=== PATIENT | female | born 1960 | race Caucasian/White ===

== ENCOUNTER 2016-10-17 01:06 | Emergency (ER) | payer OTHER ==
[~2016-10-17 01:06] MED LIST: HYDROCODONE/ACE1 TA1 PO; KETOCONAZOLE2% TOP; NASONEX0.05 MG/Ac NAS; PERCOCET 325 MG1 TA2 PO; PERCOCET 5-3251 EACH PO; ZITHROMAX Z PA250 MG PO
[2016-10-17] MEDS ORDERED: VESICARE10 MG PO (01:20)
[2016-10-17] MEDS ORDERED: TAMOXIFEN CITRA20 M1 PO (01:20)
--- NOTE | 2016-10-17 01:24 | ED GENERAL ADULT ---
History of Present Illness General Chief Complaint: General Adult Stated Complaint: MULTIPLE COMPLAINTS Source: patient Exam Limitations: no limitations Vital Signs & Intake/Output Vital Signs & Intake/Output Vital Signs Date Time Temp Pulse Resp B/P B/P Pulse O2 O2 Flow FiO2 Mean Ox Delivery Rate 10/17 0244 97.4 73 18 143/85 98 Room Air 10/17 0112 97.0 70 18 145/91 97 Room Air Allergies Coded Allergies: NO KNOWN ALLERGIES (08/21/15) Reconcile Medications Augmentin (Augmentin 500-125 Tablet) 500 MG-125 MG TABLET 1 TAB PO BID sinusitis Azithromycin (Zithromax Z Pack) 250 MG TAB 1 TAB PO DAILY Sinus congestion Take 2 tabs on the first day. Takw 1 tab daily for the following 4 days Hydrogen Peroxide (Peroxide Sore Mouth Cleanser) 1.5 % SOLUTION 1 TAB PO Q8 PRN PAIN Ketoconazole 2% CRE 1 AUDREY TOP BID DERMATITIS Mometasone Furoate (Nasonex) 0.05 MG/Actuation SPR 2 SPRAY ELIZABETH DAILY SINUS CONGESTION OXYCODONE HCL/ACETAMINOPHEN (Percocet 5-325 MG Tablet) 325 MG/5 MG TAB 1 TAB PO Q8 PRN PAIN Oxycodone HCl/Acetaminophen (Percocet 5-325 MG Tablet) 5 MG-325 MG TABLET 1 TAB PO BID PRN PAIN Solifenacin Succinate (Vesicare) 10 MG TABLET 1 TAB PO DAILY BLADDER ( Reported) Tamoxifen Citrate 20 MG TABLET 1 TAB PO DAILY BREAST CANCER (Reported) Triage Note: PER PT TOOTH ACHE SINCE 2300 L SIDE "15TH TOOTH, PER PT RADIATES TO EAR, DID NOT HAVE ANYTHING TO TAKE AT HOME NO MOTRIN OR TYLENOL, DID TRY WARM TEA AND ICE WITHOUT EFFECT. ARRIVES VIA EMS, PT AWARE OF WAIT Triage Nurses Notes Reviewed? yes Onset: Abrupt Duration: day(s): Timing: recent history HPI: 10/17/16 2:22 am 55-year-old female presents with tooth pain, bilateral maxillary sinus pain, and ear pain. She says she's had the symptoms for the past 48 hours. She denies fever. She says that she has a past medical history of sinusitis with similar symptoms in the past. She also has a history of breast cancer currently in remission on tamoxifen. The onset of the symptoms have been abrupt. The duration has been for 2 days. The severity is significant as they required her to come to the ED for care. Past History Travel History Traveled to [place] past 21 day No Medical History Any Pertinent Medical History? 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 No Review of Systems Review of Systems Constitutional: Denies: fever. EENTM: Denies: visual changes. Respiratory: Denies: short of breath. Cardiovascular: Denies: chest pain. GI: Denies: abdominal pain. Genitourinary: Reports: no symptoms. Musculoskeletal: Reports: no symptoms. Skin: Denies: rash. Neurological/Psychological: Reports: anxiety. Hematologic/Endocrine: Denies: bruising. Immunologic/Allergic: Reports: no symptoms. Physical Exam Physical Exam General Appearance: well developed/nourished, alert, awake, anxious, mild distress Head: atraumatic Eyes: Bilateral: normal appearance, PERRL, EOMI. Ears, Nose, Throat: maxillary sinus tenderness Neck: normal inspection, supple, full range of motion Respiratory: normal breath sounds, chest non-tender, no respiratory distress Cardiovascular: regular rate/rhythm Peripheral Pulses: 4+ radial (R), 4+ radial (L) Gastrointestinal: non-tender Back: normal range of motion Extremities: normal inspection Neurologic/Psych: no motor/sensory deficits, awake, alert, oriented x 3 Skin: intact, normal color, warm/dry Comments: Physical examination does reveal dental caries at the #15 tooth. Left upper molar. No abscess. She has significant bilateral maxillary sinus tenderness. Pharynx is noninjected. There is no uvular deviation. No cervical adenopathy. No nuchal rigidity. Tympanic membranes are clear. No mastoid tenderness. Lungs are clear. Core Measures ACS in differential dx? No CVA/TIA Diagnosis: No Severe Sepsis Present: No Septic Shock Present: No Progress Differential Diagnoses I considered the following diagnoses in my evaluation of the patient: [Sinusitis , cavernosus sinus thrombosis, dental abscess, otitis media, malignant otitis media, otitis externa, odontogenic infection, Osmin angina, retropharyngeal abscess, peritonsillar abscess Plan of Care: The patient was treated with a short course of Percocet for pain and Augmentin. Initial ED EKG: NSR Departure Departure Disposition: HOME OR SELF CARE Condition: Stable Clinical Impression Primary Impression: Sinusitis Referrals: AYAN GRACE,JERARDO Camarillo (PCP/Family) Departure Forms: Customer Survey General Discharge Information Prescriptions: Current Visit Scripts Augmentin (Augmentin 500-125 Tablet) 1 TAB PO BID #20 TAB Hydrogen Peroxide (Peroxide Sore Mouth Cleanser) 1 TAB PO Q8 PRN PAIN #6 Oxycodone HCl/Acetaminophen (Percocet 5-325 MG Tablet) 1 TAB PO BID PRN PAIN #6 TAB Critical Care Note Critical Care Note Critical Care Time: non-applicable
[2016-10-17] MEDS ORDERED: AUGMENTIN 500-1 EACH PO (02:30)
[2016-10-17] MEDS ORDERED: PEROXIDE SORE236 ML PO (02:31)
[2016-10-17] MEDS ORDERED: PERCOCET 5-3251 EACH PO (02:37)
[2016-10-17 02:44] VITALS: BP 143/85
== END 2016-10-17 02:46 ==
LOC: ERH 01:06
DX: J32.9 Chronic sinusitis, unspecified (principal)
CPT/HCPCS: J3490

== ENCOUNTER 2017-07-21 12:11 | Emergency (ER) | payer OTHER ==
[~2017-07-21] VITALS: Ht 162.6 cm; Wt 95.3 kg
[~2017-07-21 12:11] MED LIST changes: +AUGMENTIN 500-1 EACH PO; +CYCLOBENZAPRINE10 M1 PO; +IBUPROFEN600 M1 PO; +PEROXIDE SORE236 ML PO; +TAMOXIFEN CITRA20 M1 PO; +VESICARE10 MG PO
[2017-07-21 12:19] VITALS: BP 104/67
--- NOTE | 2017-07-21 14:12 | ED AMS/SEIZURE/WEAK/DIZZY ---
History of Present Illness General Chief Complaint: Dizziness Stated Complaint: BIBA DIZZINESS Source: patient Exam Limitations: no limitations Vital Signs & Intake/Output Vital Signs & Intake/Output Vital Signs Date Time Temp Pulse Resp B/P B/P Pulse O2 O2 Flow FiO2 Mean Ox Delivery Rate 07/21 1219 97.2 97 18 104/67 96 Room Air Allergies Coded Allergies: NO KNOWN ALLERGIES (08/21/15) Reconcile Medications Anastrozole 1 MG TABLET 1 TAB PO DAILY CANCER (Reported) Levothyroxine Sodium 50 MCG TABLET 1 TAB PO DAILY AC THYROID (Reported) Triage Note: PT TO ER C/C SOB WHILE WALKING OUTDOORS UNRELIEVED AT REST. DENIES C/P. AFEBRILE. DENIES COUGH. ABLE TO SPEAK IN CLEAR FULL SENTENCES. Triage Nurses Notes Reviewed? yes Onset: Gradual Duration: hour(s): Timing: single episode today Injury Environment: street Severity: moderate HPI: 56yo female with hx of hypothyroidism, breast CA BIBA to ED complaining of episode of dizziness, dyspnea, nausea, diaphoresis occurring prior to arrival. Patient states she walked approximately 45 minutes to go to the store. Patient began experiencing symptoms when she left the store to go back home. Patient was walking outside in the heat, currently 80-90 degree weather. She states she was feeling very warm during her walk. Patient drank coffee today, she also had some cool water, she did not eat anything. Patient states that she currently is still feeling nauseous however her dizziness has resolved. Patient denies chest pain, syncope, fall, head trauma, visual changes, headache, abdominal pain, diarrhea. (Silvia Alcaraz) Past History Travel History Traveled to [place] past 21 day No Medical History Any Pertinent Medical History? 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 No (Silvia Alcaraz) Review of Systems Review of Systems Constitutional: Reports: see HPI. EENTM: Reports: no symptoms. Respiratory: Reports: see HPI. Cardiovascular: Reports: no symptoms. GI: Reports: see HPI. Genitourinary: Reports: no symptoms. Musculoskeletal: Reports: no symptoms. Skin: Reports: no symptoms. Neurological/Psychological: Reports: see HPI. Hematologic/Endocrine: Reports: no symptoms. Immunologic/Allergic: Reports: no symptoms. All Other Systems: Reviewed and Negative (Silvia Alcaraz) Physical Exam Physical Exam General Appearance: well developed/nourished, no apparent distress, alert, awake Head: atraumatic, normal appearance Eyes: Bilateral: normal appearance, PERRL, EOMI. Ears, Nose, Throat: normal pharynx, hearing grossly normal Neck: normal inspection, supple, full range of motion Respiratory: normal breath sounds, no respiratory distress, lungs clear Cardiovascular: regular rate/rhythm Gastrointestinal: normal bowel sounds, soft, non-tender, no organomegaly Back: normal inspection, normal range of motion Extremities: normal range of motion Neurologic/Psych: awake, alert, oriented x 3, linter tender II-XII nml as tested Skin: intact, normal color, warm/dry Core Measures ACS in differential dx? Yes CVA/TIA Diagnosis No Sepsis Present: No Sepsis Focused Exam Completed? No (Silvia Alcaraz) Progress Differential Diagnosis: arrythmia, alcohol intoxication, anemia, benign positional vertigo, CVA/stroke, dehydration, drug intoxication, electrolyte imbalance, hypoglycemia, hypoxia, postural hypotension, presyncope, ACS, heat exhaustion Plan of Care: Orders Procedure Date/time Status Heart Healthy Diet 07/21 D Active TROPONIN LEVEL 07/21 1725 Complete EKG 07/21 1725 Active URINALYSIS 07/21 1411 Complete TROPONIN LEVEL 07/21 1411 Complete MAGNESIUM 07/21 1411 Complete COMPREHENSIVE METABOLIC PANEL 07/21 1411 Complete CBC WITHOUT DIFFERENTIAL 07/21 1411 Complete EKG 07/21 1217 Active Laboratory Tests 07/21/17 1744: Troponin I 0.04 07/21/17 1427: Urinalysis LIGHT H, Urine Color YEL, Urine Clarity HAZY H, Urine pH 6.5, Ur Specific Crawley 1.020, Urine Protein 30 H, Urine Ketones >=80, Urine Nitrite NEG, Urine Bilirubin NEG@ICTO, Urine Urobilinogen 0.2, Ur Leukocyte Esterase MOD H, Ur Microscopic SEDIMENT EXAMINED, Urine RBC 1-3, Urine WBC 15-25 H, Ur Epithelial Cells FEW, Urine Crystals RARE CA OX, Urine Bacteria FEW H, Granular Casts RARE H, Urine Mucus MOD H, Urine Hemoglobin LARGE H, Urine Glucose NEG 07/21/17 1424: Anion Gap 15, Estimated GFR > 60, BUN/Creatinine Ratio 16.7, Glucose 90, Calcium 9.5, Magnesium 1.9, Total Bilirubin 0.8, AST 21, ALT 29, Alkaline Phosphatase 86 , Troponin I 0.04, Total Protein 7.2, Albumin 4.3, Globulin 2.9, Albumin/ Globulin Ratio 1.5, CBC w Diff NO MAN DIFF REQ, RBC 4.49, MCV 92.4, MCH 31.3 H, MCHC 33.8, RDW 13.4, MPV 10.1, Gran % 65.1, Lymphocytes % 26.7, Monocytes % 7.0, Eosinophils % 0.8, Basophils % 0.4, Absolute Granulocytes 5.0, Absolute Lymphocytes 2.0, Absolute Monocytes 0.5, Absolute Eosinophils 0.1, Absolute Basophils 0 Patient feels improvement following IV fluids, meal here in the emergency department. Initial EKG shows nonspecific T-wave changes. Enzymes negative. Repeat EKG is unchanged, second troponin enzyme negative, remainder of her blood work is within normal limits. Patient is ambulatory here in the emergency Department with a steady gait. She is neurologically intact, answering questions readily. V vital signs are stable, she is in no acute distress, the patient feels comfortable going home. The patient agrees with the plan of care. The patient was discussed with Dr. Garcia who agrees with this plan. Initial ED EKG: SINUS RHYTHM @95BPM, NONSPECIFIC ST CHANGES Prior EKG: unchanged (05/11/12) Repeat EKG: unchanged (Karen VELAZQUEZ,Silvia Hearn) Departure Departure Disposition: HOME OR SELF CARE Condition: Stable Clinical Impression Primary Impression: Dizziness Secondary Impressions: Nausea, Near syncope Referrals: Sophia GRACE,Klever Camarillo (PCP/Family) Klever Mckeon MD, V. Additional Instructions: Increase fluids and maintain normal diet, rest. Inform your primary care doctor of today's visit to the emergency department. It is also recommended that you follow-up with cardiology referral given symptoms you had today. With any worsening symptoms such as chest pain, feeling as though you may require pass out, dizziness please return to emergency department. Please note that there might be incidental findings in your evaluation that are unrelated to the current emergency department visit. Please notify your primary care doctor about this emergency department visit in order to obtain and review all of the testing performed so that these incidental findings can be monitored as needed. If you had an x-ray performed, please understand that some fractures may not be seen on the initial set of x-rays. If your symptoms persist you might need a repeat set of x-rays to check for such a fracture. If you had a laceration evaluated, please understand that foreign bodies such as glass or wood may not be visible to the naked eye or on plain x-rays. If the wound becomes red, swollen, increasingly more painful or if there is any drainage from the wound, please have it reevaluated by a physician for the possibility of a retained foreign body. If you're unable to follow up as outlined in the discharge instructions please return to the emergency department. Thank you for choosing the [facility] Emergency Department for your care. It was a pleasure to serve you today. Departure Forms: Customer Survey General Discharge Information (Karen VELAZQUEZ,Silvia Hearn) PA/PEER COUNSELOR Co-Sign Statement Statement: ED Attending supervision documentation- [] I saw and evaluated the patient. I have also reviewed all the pertinent lab results and diagnostic results. I agree with the findings and the plan of care as documented in the PA's/PEER COUNSELOR's documentation. [X] I have reviewed the ED Record and agree with the PA's/PEER COUNSELOR's documentation. [] Additions or exceptions (if any) to the PAs/PEER COUNSELOR's note and plan are summarized below: [] (Lucas Garcia DO
[2017-07-21] MEDS ORDERED: ANASTROZOLE1 M1 PO (14:33)
[2017-07-21] MEDS ORDERED: LEVOTHYROXINE50 MCG PO (14:33)
[2017-07-21 14:36] LABS: ABSOLUTE BASOPHIL COUNT 0 /CUMM (0.0-0.2); ABSOLUTE EOSINOPHIL COUNT 0.1 /CUMM (0.0-0.7); ABSOLUTE MONOCYTE COUNT 0.5 /CUMM (0.10-0.60); BASOPHIL % 0.4 % (0.0-2.0); EOSINOPHIL % 0.8 % (0-5); GRANULOCYTE % 65.1 % (42.2-75.2); HEMATOCRIT 41.5 % (37-47); MEAN CORPUSCULAR HGB 31.3 PG (27.0-31.0); MEAN CORPUSCULAR HGB CONC 33.8 G/DL (33.0-37.0); MEAN CORPUSCULAR VOLUME 92.4 FL (81.0-99.0); MEAN PLATELET VOLUME 10.1 FL (7.4-10.4); PLATELET COUNT 205 /CUMM (130-400); RBC DISTRIBUTION WIDTH 13.4 % (11.5-14.5); RED BLOOD CELL CT 4.49 /CUMM (4.20-5.40); WHITE BLOOD CELL COUNT 7.7 /CUMM (4.8-10.8)
== END 2017-07-21 19:24 ==
LOC: ERH 12:11
PROVIDERS: Physician Assistant
DX: R55 Syncope and collapse (principal); R42 Dizziness and giddiness; R11.0 Nausea
CPT/HCPCS: 81001; 93005; 93010; 96374; J2405